=== PATIENT | male | born 1940 | race Hispanic/Latino ===

== ENCOUNTER → 2020-10-09 | Outpatient (CLI) | payer OTHER ==
[~2020-10-09] MED LIST: ALBUTEROL SULFATE 0.083% 2.5 MG/3 ML INH IH ONE
== END | disposition home or self-care (01) ==
LOC: RESP 10:29
PROVIDERS: ATTEND Orthopaedic Surgery
DX: I70.0 Atherosclerosis of aorta (principal); J98.9 Respiratory disorder, unspecified; M40.294 Other kyphosis, thoracic region; I51.7 Cardiomegaly
CPT/HCPCS: 71046; 94060